=== PATIENT | female | born 1950 | race Caucasian/White ===

== ENCOUNTER 2018-04-05 18:19 | Observation (INO) ==
[2018-04-05 19:04] LABS: Basophils # 0.1 10*3/uL (0.0-0.2); Basophils % 1.1 % (0.0-0.8); Eosinophils # 0.2 10*3/uL (0.0-0.87); Eosinophils % 2.4 % (0.00-10.9); Hematocrit 39.7 VOL% (35.7-47.0); Hemoglobin 13.3 GM/DL (12.0-16.0); Immature Granulocytes % 0.4 %; Immature Granulocytes Absolute 0.03 #; Lymphocytes # 2.9 10*3/uL (1.4-4.0); Lymphocytes % 33.7 % (21.3-54.2); Mean Corpuscular HGB Conc 33.5 GM/DL (32-36); Mean Corpuscular Hemoglobin 32 PG (27-34); Mean Corpuscular Volume 96.6 FL (87-102); Mean Platelet Volume 8.9 FL (9.6-12.0); Monocytes # 0.8 10*3/uL (0.11-0.8); Monocytes % 9.6 % (1.7-12.7); Neutrophils # 4.5 10*3/uL (1.4-7.4); Neutrophils % 52.8 % (38.7-73.9); Platelet Count 360 T/CUMM (130-400); Red Blood Count 4.11 MC/CUMM (3.8-5.5); Red Cell Distribution Width 12.6 % (9.3-17.3); White Blood Count 8.5 T/CUMM (4-12)
[2018-04-05 19:19] LABS: Alanine Aminotransferase 24 U/L (13-56); Albumin 4.5 G/DL (3.4-5.0); Alkaline Phosphatase 114 U/L (45-117); Amylase 68 U/L (25-115); Aspartate Amino Transferase 30 U/L (0-37); Bilirubin,Total < 0.39 MG/DL (0.2-1.0); Blood Urea Nitrogen 29 MG/DL (7-18); Calcium 10.4 MG/DL (8.5-10.1); Glucose 113 MG/DL (74-106); Osmolality,Calculated 281.7 MOS/KG (273-304); Potassium 3.3 MMOL/L (3.5-5.1); Sodium 138 MMOL/L (136-145); Total Protein 7.9 G/DL (6.4-8.3)
[2018-04-05] MEDS ORDERED: SODIUM CHLORIDE 0.9% 1,000 ML IV STA (23:10)
[2018-04-05 23:15] LABS: Basophils # 0.1 10*3/uL (0.0-0.2); Basophils % 0.8 % (0.0-0.8); Eosinophils # 0.2 10*3/uL (0.0-0.87); Eosinophils % 1.6 % (0.00-10.9); Hematocrit 35.3 VOL% (35.7-47.0); Hemoglobin 11.8 GM/DL (12.0-16.0); Immature Granulocytes % 0.3 %; Immature Granulocytes Absolute 0.03 #; Lymphocytes # 2.7 10*3/uL (1.4-4.0); Lymphocytes % 24.7 % (21.3-54.2); Mean Corpuscular HGB Conc 33.4 GM/DL (32-36); Mean Corpuscular Hemoglobin 32 PG (27-34); Mean Corpuscular Volume 95.9 FL (87-102); Mean Platelet Volume 8.7 FL (9.6-12.0); Monocytes % 8.9 % (1.7-12.7); Neutrophils # 6.9 10*3/uL (1.4-7.4); Neutrophils % 63.7 % (38.7-73.9); Platelet Count 315 T/CUMM (130-400); Red Blood Count 3.68 MC/CUMM (3.8-5.5); Red Cell Distribution Width 12.6 % (9.3-17.3); White Blood Count 10.8 T/CUMM (4-12)
[2018-04-05 23:41] LABS: Apearance,Urine CLEAR (Clear); Bilirubin,Urine Negative (Negative); Blood, Urine Negative (Negative); Glucose,Urine (UA) Negative (Negative); Ketones,Urine Negative (Negative); Nitrite,Urine Negative (Negative); Protein,Urine Negative; RBC,Urine <1 /HPF (0-4); Urine Color Straw (Yellow); Urine Specific Gravity 1.004 (1.001-1.035); Urine Urobilinogen < 2.0 EU/DL (0.2-1.0); WBC,Urine 1 /HPF (0-6)
[2018-04-05 23:42] LABS: Ammonia < 10 UMOL/L (11-32)
[2018-04-05 23:48] LABS: Alanine Aminotransferase 27 U/L (13-56); Albumin 4.1 G/DL (3.4-5.0); Alkaline Phosphatase 110 U/L (45-117); Aspartate Amino Transferase 24 U/L (0-37); Barbiturates Screen,Urine Negative (Negative); Benzodiazepines Screen,Urine Negative (Negative); Bilirubin,Total < 0.39 MG/DL (0.2-1.0); Blood Urea Nitrogen 27 MG/DL (7-18); Calcium 9.6 MG/DL (8.5-10.1); Cannabinoid Screen,Urine Negative (Negative); Glucose 119 MG/DL (74-106); Opiate Screen,Urine Negative (Negative); Osmolality,Calculated 280.7 MOS/KG (273-304); Phencyclidine Screen,Urine Negative (Negative); Potassium 3.4 MMOL/L (3.5-5.1); Sodium 138 MMOL/L (136-145); Total Protein 7.2 G/DL (6.4-8.3)
[2018-04-06] MEDS ORDERED: ONDANSETRON 4 MG/2 ML VIAL IV PRN (01:50)
[2018-04-06] MEDS: SODIUM CHLORIDE 0.9% 1,000 ML IV SCH ×3 (03:33→21:04)
[2018-04-06 06:43] LABS: Basophils # 0.1 10*3/uL (0.0-0.2); Basophils % 0.7 % (0.0-0.8); Eosinophils # 0.1 10*3/uL (0.0-0.87); Eosinophils % 0.8 % (0.00-10.9); Hematocrit 33.9 VOL% (35.7-47.0); Hemoglobin 11.4 GM/DL (12.0-16.0); Immature Granulocytes % 0.3 %; Immature Granulocytes Absolute 0.02 #; Lymphocytes # 1.6 10*3/uL (1.4-4.0); Lymphocytes % 21.5 % (21.3-54.2); Mean Corpuscular HGB Conc 33.6 GM/DL (32-36); Mean Corpuscular Hemoglobin 32 PG (27-34); Mean Platelet Volume 9.1 FL (9.6-12.0); Monocytes # 0.7 10*3/uL (0.11-0.8); Monocytes % 8.7 % (1.7-12.7); Neutrophils # 5.2 10*3/uL (1.4-7.4); Platelet Count 297 T/CUMM (130-400); Red Blood Count 3.53 MC/CUMM (3.8-5.5); Red Cell Distribution Width 12.6 % (9.3-17.3); White Blood Count 7.6 T/CUMM (4-12)
[2018-04-06 07:26] LABS: Calcium 8.9 MG/DL (8.5-10.1); Osmolality,Calculated 288.8 MOS/KG (273-304); Potassium 3.8 MMOL/L (3.5-5.1); Thyroid Stimulating Hormone 3.28 uIU/ml (0.358-3.74)
[2018-04-06] MEDS ORDERED: ENOXAPARIN 30 MG/0.3 ML SYRINGE SUBCUT SCH (09:00)
[2018-04-06] MEDS ORDERED: QUEtiapine 25 MG TABLET PO SCH (21:00)
[2018-04-06] MEDS: ACETAMINOPHEN 325 MG TABLET PO PRN ×2 (21:09→23:31)
[2018-04-06] MEDS ORDERED: ZIPRASIDONE 20 MG/1 ML VIAL IM ONE (23:14)
[2018-04-07] MEDS ORDERED: HALOPERIDOL 5 MG/ML AMP IM ONE ×2 (03:26→21:29)
[2018-04-07] MEDS ORDERED: TEMAZEPAM 15 MG CAPSULE PO PRN (11:02)
[2018-04-07] MEDS ORDERED: BACLOFEN 10 MG TABLET PO PRN (11:06)
[2018-04-07] MEDS: ENOXAPARIN 40 MG/0.4 ML SYRINGE SUBCUT SCH (12:17)
[2018-04-07] MEDS: SODIUM CHLORIDE 0.9% 1,000 ML IV SCH ×2 (12:17→23:00)
[2018-04-07 12:40] LABS: Folate > 24.0 NG/ML (5.4-24.0); Vitamin B12 579 PG/ML (211-911)
[2018-04-07] MEDS: CARBIDOPA/LEVODOPA 25-100 MG TABLET PO PRN (17:40)
[2018-04-07] MEDS: ACETAMINOPHEN 325 MG TABLET PO PRN (17:40)
[2018-04-07] MEDS: CARISOPRODOL 350 MG TABLET PO SCH (20:15)
[2018-04-07] MEDS: TOPIRAMATE 100 MG TABLET PO SCH (20:15)
[2018-04-07] MEDS: risperiDONE 0.25 MG TABLET PO SCH (20:15)
[2018-04-08] MEDS: CARISOPRODOL 350 MG TABLET PO SCH ×2 (09:22→20:52)
[2018-04-08] MEDS: TOPIRAMATE 100 MG TABLET PO SCH ×2 (09:22→20:52)
[2018-04-08] MEDS: DULoxetine 30 MG CAPSULE PO SCH (09:22)
[2018-04-08] MEDS: FAMOTIDINE 20 MG TABLET PO SCH (09:23)
[2018-04-08] MEDS: ENOXAPARIN 40 MG/0.4 ML SYRINGE SUBCUT SCH (09:23)
[2018-04-08] MEDS: CARBIDOPA/LEVODOPA 25-100 MG TABLET PO PRN (15:40)
[2018-04-08] MEDS: SODIUM CHLORIDE 0.9% 1,000 ML IV SCH ×3 (16:02→22:58)
[2018-04-08] MEDS: risperiDONE 0.25 MG TABLET PO SCH (20:52)
[2018-04-09] MEDS: FAMOTIDINE 20 MG TABLET PO SCH (08:51)
[2018-04-09] MEDS: CARISOPRODOL 350 MG TABLET PO SCH (08:51)
[2018-04-09] MEDS: TOPIRAMATE 100 MG TABLET PO SCH (08:52)
[2018-04-09] MEDS: DULoxetine 30 MG CAPSULE PO SCH (08:53)
[2018-04-09] MEDS: CARBIDOPA/LEVODOPA 25-100 MG TABLET PO PRN (09:01)
[2018-04-09] MEDS: ENOXAPARIN 40 MG/0.4 ML SYRINGE SUBCUT SCH (09:03)
[2018-04-09] MEDS: SODIUM CHLORIDE 0.9% 1,000 ML IV SCH (11:05)
[2018-04-09 17:00] VITALS: BP 167/86
[2018-04-09] MEDS ORDERED: amLODIPine 5 MG TABLET PO ONE (17:34)
== END 2018-04-09 17:45 ==
LOC: N.EDINP 18:19 → N.ED 18:19 → N.3E 04-06 01:35
PROVIDERS: ADMIT Internal Medicine; ATTEND Internal Medicine